=== PATIENT | male | born 1945 | race Caucasian/White ===

== ENCOUNTER 2018-09-19 06:55 | Emergency (ER) | payer MEDICARE, BC ==
[2018-09-19 08:47] LABS: ALT (SGPT) 18 U/L (8-55); AST (SGOT) 29 U/L (5-34); Albumin 3.9 g/dL (3.4-4.8); Alkaline Phosphatase 70 U/L (40-150); Anion Gap 11 mmol/L (10-20); BUN (Urea Nitrogen) 14 mg/dL (8.4-25.7); Bilirubin, Total 1.1 mg/dL (0.2-1.2); Calc. Creatinine Clearance 0 mL/min (70-130); Calcium 9.7 mg/dL (7.8-10.44); Carbon Dioxide 28 mmol/L (23-31); Chloride 103 mmol/L (98-107); Estimated GFR-MDRD 68; Globulin 4.1 g/dL (2.4-3.5); Glucose 143 mg/dL (83-110); Potassium 4.2 mmol/L (3.5-5.1); Sodium 138 mmol/L (136-145)
--- NOTE | 2018-09-19 09:05 | RAD ---
PORTABLE CHEST: Date: 09/19/18 HISTORY: Hypertension and syncope. COMPARISON: 08/09/12 exam. FINDINGS: Heart size appears borderline enlarged. There are postop sternotomy changes. Chronic-appearing lung c hanges are seen. No signs of overt failure. IMPRESSION: Chronic lung change. Stable chest. POS: [facility]
== END 2018-09-19 09:48 | disposition home or self-care (01) ==
LOC: ERS 06:55
DX: I10 Essential (primary) hypertension (principal); R73.03 Prediabetes; G62.9 Polyneuropathy, unspecified
CPT/HCPCS: 36415; 71045; 80053; 84484; 93005

== ENCOUNTER 2018-09-30 09:40 | Outpatient (CLI) | payer MEDICARE, BC | END 2018-09-30 09:41 | disposition home or self-care (01) | LOC: DTY/OP 09:40 | PROVIDERS: ATTEND Family Medicine | DX: E11.65 Type 2 diabetes mellitus with hyperglycemia (principal) | CPT/HCPCS: 97802 ==

== ENCOUNTER 2019-10-05 11:04 | Outpatient (CLI) | payer MEDICARE, BC ==
--- NOTE | 2019-10-05 11:17 | RAD ---
XR Chest Pa Lat STANDARD HISTORY: Cough COMPARISON: 09/19/2018 FINDINGS: The heart size is normal. Changes of median sternotomy are again seen. The lungs are well e xpanded without focal areas of consolidation, pneumothorax or pleural effusions. IMPRESSION: No radiographic evidence of acute cardiopulmonary process.
== END 2019-10-05 11:05 | disposition home or self-care (01) ==
LOC: BICRAD 11:04
PROVIDERS: ATTEND Family Medicine
DX: R05 Cough (principal)
CPT/HCPCS: 71046

== ENCOUNTER 2021-08-05 12:55 | Outpatient (CLI) | payer MEDICARE, BC ==
[~2021-08-05 12:55] MED LIST: Iopamidol 370 76% 100 ML VIAL ONE
== END 2021-08-05 12:56 | disposition home or self-care (01) ==
LOC: CT 12:55
PROVIDERS: ATTEND Internal Medicine Cardiovascular Disease
DX: I77.9 Disorder of arteries and arterioles, unspecified (principal); I65.23 Occlusion and stenosis of bilateral carotid arteries
CPT/HCPCS: 70498; Q9967

== ENCOUNTER 2022-06-05 18:51 | Observation (INO) | payer MEDICARE, BC ==
[2022-06-05 19:27] LABS: #Eosinphils 0.3 thou/uL (0.0-0.7); #Monocytes 0.8 thou/uL (0.11-0.59); #Neutrophils 3.4 thou/uL (1.40-6.50); %Basophils 0.6 % (0.0-1.0); %Eosinophils 3.4 % (0.0-10.0); %Lymphocytes 40.2 % (21.0-51.0); %Monocytes 10.5 % (0.0-10.0); %Neutrophils 45.3 % (42.0-75.0); Hemoglobin 12.8 g/dL (14.0-18.0); Mean Corpuscular HGB CONC 33.3 g/dL (32.0-36.0); Mean Corpuscular Hemoglobin 32.6 pg (27.0-31.0); Mean Corpuscular Volume 97.9 fl (78.0-98.0); Mean Platelet Volume 7.4 fL (7.4-10.4); Platelet Count 164 10x3/uL (130-400); RBC Distribution Width 12.4 % (11.5-14.5); Red Blood Cell (RBC) Count 3.94 mill/uL (4.70-6.10); White Blood Cell (WBC) Count 7.6 10x3/uL (4.8-10.8)
[2022-06-05 19:49] LABS: ALT (SGPT) 17 U/L (8-55); AST (SGOT) 32 U/L (5-34); Albumin 3.8 g/dL (3.4-4.8); Alkaline Phosphatase 64 U/L (40-110); Anion Gap 13 mmol/L (10-20); BUN (Urea Nitrogen) 17 mg/dL (8.4-25.7); Bilirubin, Total 0.5 mg/dL (0.2-1.2); Calc. Creatinine Clearance 0 mL/min (70-130); Calcium 8.9 mg/dL (7.8-10.44); Carbon Dioxide 24 mmol/L (23-31); Chloride 107 mmol/L (98-107); Estimated GFR 68; Globulin 3.5 g/dL (2.4-3.5); Glucose 116 mg/dL (83-110); Lipase 46 U/L (8-78); Potassium 3.9 mmol/L (3.5-5.1); Protein, Total 7.3 g/dL (5.8-8.1); Sodium 140 mmol/L (136-145)
[2022-06-05] MEDS ORDERED: Clopidogrel Bisulfate 300 MG TAB ONE (20:11)
[2022-06-05] MEDS ORDERED: Nitroglycerin 2% Ointment 1 INCH/1 GM Packet ONE (20:11)
[2022-06-05] MEDS ORDERED: Nitroglycerin 0.4 MG TAB (25 Tab Bottle) SL PRN (22:00)
[2022-06-05] MEDS ORDERED: Ondansetron PF 4 MG/2 ML Vial IVP PRN (22:00)
[2022-06-05] MEDS ORDERED: Acetaminophen 325 MG TAB PO PRN (22:00)
[2022-06-05] MEDS ORDERED: Nitroglycerin 2% Ointment 1 INCH/1 GM Packet TOP SCH (23:59)
[2022-06-06 00:59] LABS: Troponin I 0.016 ng/mL (< 0.028)
[2022-06-06 02:34] LABS: #Basophils 0.1 thou/uL (0.0-0.2); #Eosinphils 0.3 thou/uL (0.0-0.7); #Lymphocytes 2.6 thou/uL (1.20-3.40); #Monocytes 0.8 thou/uL (0.11-0.59); #Neutrophils 3.3 thou/uL (1.40-6.50); %Basophils 0.9 % (0.0-1.0); %Eosinophils 4.1 % (0.0-10.0); %Lymphocytes 37.1 % (21.0-51.0); %Monocytes 11.3 % (0.0-10.0); %Neutrophils 46.5 % (42.0-75.0); Hemoglobin 12.4 g/dL (14.0-18.0); Mean Corpuscular HGB CONC 33.5 g/dL (32.0-36.0); Mean Corpuscular Hemoglobin 32.8 pg (27.0-31.0); Mean Corpuscular Volume 97.7 fl (78.0-98.0); Mean Platelet Volume 7.4 fL (7.4-10.4); Platelet Count 146 10x3/uL (130-400); RBC Distribution Width 12.4 % (11.5-14.5); Red Blood Cell (RBC) Count 3.79 mill/uL (4.70-6.10); White Blood Cell (WBC) Count 7.1 10x3/uL (4.8-10.8)
[2022-06-06 02:52] LABS: Troponin I 0.012 ng/mL (< 0.028)
[2022-06-06 02:58] LABS: Anion Gap 13 mmol/L (10-20); BUN (Urea Nitrogen) 16 mg/dL (8.4-25.7); Calc. Creatinine Clearance 80 mL/min (70-130); Calcium 8.6 mg/dL (7.8-10.44); Carbon Dioxide 22 mmol/L (23-31); Chloride 110 mmol/L (98-107); Estimated GFR 88; Glucose 107 mg/dL (83-110); Magnesium 2.1 mg/dL (1.6-2.6); Sodium 141 mmol/L (136-145)
[2022-06-06 03:56] VITALS: BMI 26.2
[2022-06-06] MEDS ORDERED: Atorvastatin Calcium 40 MG TAB PO SCH ×2 (09:00→21:00)
[2022-06-06] MEDS ORDERED: Losartan 25 MG TAB PO SCH (09:00)
[2022-06-06] MEDS ORDERED: Aspirin Chewable 81 MG TAB PO SCH (09:00)
[2022-06-06 12:35] VITALS: BP 122/69; TEMP 97.6
== END 2022-06-06 15:12 | disposition home or self-care (01) ==
LOC: ERS 18:51 → 2SW 21:07
PROVIDERS: ADMIT Internal Medicine; ATTEND Internal Medicine
DX: R07.89 Other chest pain (principal); I25.10 Atherosclerotic heart disease of native coronary artery without angina pectoris; I10 Essential (primary) hypertension; E11.42 Type 2 diabetes mellitus with diabetic polyneuropathy; I08.8 Other rheumatic multiple valve diseases; E78.5 Hyperlipidemia, unspecified; K21.9 Gastro-esophageal reflux disease without esophagitis; I48.0 Paroxysmal atrial fibrillation; I25.2 Old myocardial infarction; Z85.72 Personal history of non-Hodgkin lymphomas; Z77.29 Contact with and (suspected) exposure to other hazardous substances; Z79.82 Long term (current) use of aspirin; Z79.899 Other long term (current) drug therapy; Z88.6 Allergy status to analgesic agent; Z88.8 Allergy status to other drugs, medicaments and biological substances; Z95.1 Presence of aortocoronary bypass graft; Z20.822 Contact with and (suspected) exposure to COVID-19
CPT/HCPCS: 71045; 80048; 80053; 83690; 83735; 84484 ×3; 85025 ×2; 93005; 94760 ×3; 99285; G0378 ×3; U0003; U0005; 36415

== ENCOUNTER 2023-05-15 08:38 | Emergency (ER) | payer MEDICARE, BC | END 2023-05-15 10:05 | disposition home or self-care (01) | LOC: ERS 08:38 | DX: J34.89 Other specified disorders of nose and nasal sinuses (principal); I10 Essential (primary) hypertension; E11.42 Type 2 diabetes mellitus with diabetic polyneuropathy; F03.90 Unspecified dementia, unspecified severity, without behavioral disturbance, psychotic disturbance, mood disturbance, and anxiety; Z55.6 Problems related to health literacy; Z79.82 Long term (current) use of aspirin; Z79.899 Other long term (current) drug therapy | CPT/HCPCS: 71045; 93005 ==

== ENCOUNTER 2023-10-12 23:02 | Emergency (ER) | payer MEDICARE, BC ==
[2023-10-13] MEDS ORDERED: Ibuprofen 200 MG TAB ONE ×2 (00:05→00:09)
== END 2023-10-13 00:24 | disposition home or self-care (01) ==
LOC: ERS 23:02
DX: S23.41XA Sprain of ribs, initial encounter (principal); I10 Essential (primary) hypertension; E11.9 Type 2 diabetes mellitus without complications; Z79.899 Other long term (current) drug therapy; Z79.82 Long term (current) use of aspirin; W18.30XA Fall on same level, unspecified, initial encounter
CPT/HCPCS: 36415; 80061; 80076; 82947; 83036

== ENCOUNTER 2024-04-07 08:10 | Outpatient (CLI) | payer MEDICARE, BC | END 2024-04-07 08:11 | disposition home or self-care (01) | LOC: NM 08:10 | PROVIDERS: ATTEND Psychiatry & Neurology Neurology | DX: G20.C Parkinsonism, unspecified (principal); R93.0 Abnormal findings on diagnostic imaging of skull and head, not elsewhere classified | CPT/HCPCS: 78803; A9584 ×2 ==

== ENCOUNTER 2024-05-26 09:06 | Outpatient (CLI) | payer MEDICARE, BC | END 2024-05-26 09:07 | disposition home or self-care (01) | LOC: BICMAMMO 09:06 | PROVIDERS: ATTEND Family Medicine | DX: N63.41 Unspecified lump in right breast, subareolar (principal); N62 Hypertrophy of breast | CPT/HCPCS: 76642; 77066; G0279 ==

== ENCOUNTER 2025-03-15 18:14 | Emergency (ER) | payer MEDICARE, BC ==
[2025-03-15 20:08] LABS: ALT (SGPT) 23 U/L (Less than 45); AST (SGOT) 54 U/L (11-34); Albumin 3.0 g/dL (3.1-4.5); Alkaline Phosphatase 64 U/L (40-110); Anion Gap 16 mmol/L (10-20); BUN (Urea Nitrogen) 17 mg/dL (8.4-25.7); Bilirubin, Total 0.7 mg/dL (0.3-1.2); Calc. Creatinine Clearance 0 mL/min (70-130); Calcium 8.7 mg/dL (7.8-10.44); Carbon Dioxide 22 mmol/L (23-31); Chloride 106 mmol/L (98-107); Globulin 4.3 g/dL (2.4-3.5); Glucose 87 mg/dL (83-110); Potassium 4.3 mmol/L (3.5-5.1); Sodium 140 mmol/L (136-145)
[2025-03-15 20:12] LABS: #Basophils 0.03 10x3/uL (0.0-0.2); #Eosinophils 0.30 10x3/uL (0.0-0.7); #Monocytes 1.04 10x3/uL (0.11-0.59); #Neutrophils 5.89 10x3/uL (1.40-6.50); %Basophils 0.4 % (0.0-1.0); %Eosinophils 3.5 % (0.0-10.0); %Lymphocytes 14.5 % (21.0-51.0); %Monocytes 12.2 % (0.0-10.0); %Neutrophils 69.2 % (42.0-75.0); Hematocrit 38.6 % (42.0-52.0); Hemoglobin 12.6 g/dL (14.0-18.0); Mean Corpuscular Hemoglobin 30.6 pg (27.0-31.0); Mean Corpuscular Volume 93.7 fL (78.0-98.0); Platelet Count 136 10x3/uL (130-400); Red Blood Cell (RBC) Count 4.12 mill/uL (4.70-6.10); White Blood Cell (WBC) Count 8.51 10x3/uL (4.8-10.8)
[2025-03-15 20:45] LABS: Bacteria/HPF None Seen HPF (None Seen); CAUTI Indications for Culture Alt mental st,lethar; Glucose, Urine (Dipstick) Normal (Negative); Leukocyte Negative Leu/uL (Negative); Protein, Urine (Dipstick) Negative (Neg-Trace); RBC/HPF None Seen HPF (0-3); Specific Gravity, Urine 1.018 (1.002-1.036); WBC/HPF 0-3 HPF (0-3)
[2025-03-15 20:47] LABS: Urine Culture Reflex No No
== END 2025-03-15 22:10 | disposition home or self-care (01) ==
LOC: ERS 18:14
DX: R53.1 Weakness (principal); I10 Essential (primary) hypertension; E11.42 Type 2 diabetes mellitus with diabetic polyneuropathy
CPT/HCPCS: 36415; 71045; 80053; 81001; 83605; 85025; 85379; 87040; 87428; 93005